=== PATIENT | female | born 1930 | race Caucasian/White ===

== ENCOUNTER 2016-05-22 13:08 | Inpatient (IN) | payer OTHER ==
[~2016-05-22] VITALS: Ht 147.3 cm; Wt 38.2 kg
[~2016-05-22 13:08] MED LIST: ADVAIR 250/501 DISK IH; ADVAIR 500/501 DISK IH; ALBUTEROL2.5 MG/3 M IH; ALPRAZOLAM0.25 M2 PO; ALPRAZOLAM0.25 MG PO; ALPRAZOLAM0.5 MG PO; ARANESP10 MCG/0.4 SC; ARANESP300 MCG/0. IV; ASPIR-LOW81 MG PO; ASPIRIN EC325 MG PO; ASPIRIN81 M1 PO; AZITHROMYCIN250 MG PO; CALCIUM 500 +1 EAC4 PO; CEFTIN250 MG PO; CEFTIN500 MG PO; CHERATUSSIN AC473 ML PO; CIDAFLEX TABLE1 EACH PO; CLONIDINE HCL0.1 MG PO; COZAAR25 MG PO; COZAAR50 MG PO; CRANBERRY 4001 EAC1 PO; CRANBERRY500 M2 PO; CRANBERRY500 MG PO; CYANOCOBALAM1000 MCG PO; DOCUSATE SODIU100 MG PO; DOK PLUS TABLE1 EACH PO; DOXAZOSIN MESYLA1 MG PO; DOXYCYCLINE HY100 MG PO; FERREX 150150 MG PO; FLONASE16 G1 BOTH NARES; FOLIC ACID1 MG PO; FUROSEMIDE20 MG PO; FUROSEMIDE40 MG PO; GABAPENTIN300 M1 PO; GABAPENTIN300 MG PO; GLUCOSAMINE &1 EACH PO; GLUCOSAMINE-CH1 EA14 PO; GLUCOSAMINE-CH1 EA28 PO; HYDROCODON-ACE1 EAC7 PO; I-CAPS AREDS S1 EACH PO; I-CAPS WITH LU1 EACH PO; ICAPS MULTIV1 TABLET PO; IMDUR60 MG PO; IRON55 MG PO; ISOSORBIDE MONO60 MG PO; K-DUR10 MEQ PO; K-TAB10 MEQ PO; LASIX40 MG PO; LEVAQUIN750 MG PO; LEVO-T112 MCG PO; LEVOFLOXACIN750 MG PO; LEVOTHROID88 MCG PO; LEVOTHYROXINE100 MCG PO; LEVOTHYROXINE88 MCG PO; LEVOXYL100 MCG PO; LEVOXYL88 MCG PO; LIPITOR20 MG PO; LIPITOR40 MG PO; LO-DOSE ASPIRIN81 M1 PO; LOPRESSOR25 MG PO; LOSARTAN POTAS100 MG PO; LOSARTAN POTASS50 MG PO; METOPROLOL TART25 MG PO; MICRO-K10 ME2 PO; NAPROSYN500 MG PO; NASONEX17 GM NS; NEXIUM40 MG PO; NIFEREX-150,FE150 MG PO; NITROSTAT0.4 MG SL; OS-CAL 500+D C1 EAC1 PO; OS-CAL 500+D T1 EAC1 PO; OS-CAL 500+D31 EACH PO; OSCAL, OYSTER500 MG PO; OYSTER SHELL C1 EA16 PO; PLAVIX75 MG PO; PREDNISONE20 MG PO; PROAIR HFA8.5 GM IH; PROBIOTIC 4X C1 EACH PO; PROBIOTIC DIGE1 EACH PO; PROBIOTIC1 EAC1 PO; PROVENTIL,2.5 MG/3 M IH; RANITIDINE HCL150 M1 PO; RANITIDINE HCL150 MG PO; ROBITUSSIN100 MG/5 M PO; SENNA PLUS TAB1 EACH PO; SERTRALINE HCL50 MG PO; SINGULAIR10 MG PO; SYNTHROID100 MCG PO; SYNTHROID88 MCG PO; SYSTANE BALANCE10 ML BOTH EYES; SYSTANE GEL EYE10 ML BOTH EYES; TIROSINT13 MCG PO; TOPROL XL50 MG PO; TYLENOL EXTRA500 MG PO; TYLENOL REGULA325 MG PO; VALIUM5 MG PO; VENTOLIN HFA18 GM IH; XANAX0.25 MG PO; XARELTO15 MG PO; ZANTAC150 MG PO; ZITHROMAX250 MG PO; ZOLOFT50 MG PO; ZYRTEC10 M2 PO; ZYRTEC10 M3 PO
[2016-05-22 14:09] LABS: EOSINOPHIL (%) 0.1 % (0-5); HEMATOCRIT 31.1 % (36.0-46.0); IMMATURE GRANULOCYTE (%) 0.5 % (0.0-0.7); IMMATURE GRANULOCYTE COUNT 0.8 K/uL; LYMPHOCYTE COUNT 0.9 K/uL (1.0-2.8); MCH 28.5 PG (29.0-34.0); MCHC 31.5 G/DL (30.0-36.0); MCV 90.4 FL (83-99); MEAN PLAT.VOLUME 11.4 uM^3 (9.5-12.4); MONOCYTE (%) 7.3 % (3-12); MONOCYTE COUNT 1.1 K/uL (0-0.8); NEUTROPHIL (%) 86.4 % (45-76); NEUTROPHIL COUNT 13.2 K/uL (1.8-6.4); PLATELET COUNT 152 K/uL (156-360); RBC DIS.WIDTH-CV 17.3 % (11.8-14.6); RBC DIS.WIDTH-SD 55.2 % (39-53); RED BLOOD COUNT 3.44 M/uL (3.80-5.20); WHITE BLOOD COUNT 15.2 K/uL (4.1-10.2)
[2016-05-22 14:15] LABS: CHLORIDE 103 mEq/L (99-109); POTASSIUM 4.3 mEq/L (3.7-5.4); SODIUM 142 mEq/L (136-147)
[2016-05-22 14:17] LABS: GLUCOSE 152 mg/dL (70-99)
[2016-05-22 14:18] LABS: ANION GAP 12 MEQ/L (2-14)
[2016-05-22 14:19] LABS: TOTAL BILIRUBIN 0.3 mg/dL (0.0-1.0)
[2016-05-22 14:21] LABS: ALKALINE PHOSPHATASE 81 IU/L (3-129); GFR ESTIMATE (CALCULATED) 56 mL/min/
[2016-05-22 14:22] LABS: UREA NITROGEN (BUN) 31 mg/dL (9-23)
[2016-05-22 14:26] LABS: TROP-I INTERPRETATION NEGATIVE; TROPONIN-I 0.09 ng/mL (0.0-0.30)
[2016-05-22 15:07] LABS: BASE EXCESS 3.3 mEq/L (-3 to +3); CARBOXY HGB 1.5 % (0-5); METHEMOGLOBIN 1.3 % (0-1.5); PCO2 49 mm Hg (35-45); PO2 228 mm Hg (80-100); pH 7.38 (7.35-7.45)
[2016-05-22 15:08] LABS: COMMENTS - BLOOD GASES A+C+; CONTINUOUS POS AIRWAY PRESSURE 5 cm H2O; DEVICE VENT VIA MASK; FI02 80 %; MODE SPON; PRES. SUPPORT 10 CM/H2O; SITE RR; TOTAL RESP RATE 20 resp/min
[2016-05-22 23:03] VITALS: BP 86/40
[2016-05-22 23:30] VITALS: BP 90/44
[2016-05-23] VITALS (23 sets, daily range): BP systolic 86–158; BP diastolic 31–68
[2016-05-23 01:14] LABS: METH RESISTANT S AUREUS PCR NEGATIVE (NEGATIVE)
[2016-05-23 01:15] LABS: TROP-I INTERPRETATION NEGATIVE
[2016-05-23 01:20] LABS: PROBE CHECK PASS; SPECIMEN PROCESSING CONTROL PASS
[2016-05-23 06:19] LABS: HEMATOCRIT 29.3 % (36.0-46.0); MCH 28.4 PG (29.0-34.0); MCHC 31.4 G/DL (30.0-36.0); MCV 90.4 FL (83-99); MEAN PLAT.VOLUME 11.8 uM^3 (9.5-12.4); PLATELET COUNT 154 K/uL (156-360); RBC DIS.WIDTH-CV 17.8 % (11.8-14.6); RBC DIS.WIDTH-SD 58.9 % (39-53); RED BLOOD COUNT 3.24 M/uL (3.80-5.20); WHITE BLOOD COUNT 14.9 K/uL (4.1-10.2)
[2016-05-23 06:46] LABS: ANION GAP 10 MEQ/L (2-14); CHLORIDE 101 MEQ/L (99-109); GFR ESTIMATE (CALCULATED) > 59 mL/min/; GLUCOSE 159 mg/dL (70-99); MAGNESIUM 1.8 mg/dl (1.3-2.7); SAMPLE HEMOLYSIS CHECK 0; SAMPLE ICTERIC CHECK 0; SAMPLE LIPEMIA CHECK 0; SODIUM 143 MEQ/L (136-147); UREA NITROGEN (BUN) 30 mg/dL (9-23)
[2016-05-23 07:02] LABS: TROP-I INTERPRETATION NEGATIVE; TROPONIN-I 0.24 ng/mL (0.0-0.30)
[2016-05-23 18:47] LABS: CREATINE KINASE 44 IU/L (1-294); TOTAL CK 44 IU/L (1-294)
[2016-05-23 18:53] LABS: TROP-I INTERPRETATION NEGATIVE; TROPONIN-I 0.15 ng/mL (0.0-0.30)
[2016-05-23 19:25] LABS: CK-MB 2.5 ng/mL (0.0-4.9)
[2016-05-24] VITALS (21 sets, daily range): BP systolic 128–197; BP diastolic 39–100
[2016-05-24 01:45] LABS: CREATINE KINASE 58 IU/L (1-294); TOTAL CK 58 IU/L (1-294)
[2016-05-24 01:46] LABS: TROP-I INTERPRETATION NEGATIVE
[2016-05-24 01:52] LABS: CK-MB 2.8 ng/mL (0.0-4.9)
[2016-05-24 06:59] LABS: TROP-I INTERPRETATION NEGATIVE; TROPONIN-I 0.17 ng/mL (0.0-0.30)
[2016-05-24 07:11] LABS: ANION GAP 13 MEQ/L (2-14); CHLORIDE 100 MEQ/L (99-109); CREATINE KINASE 45 IU/L (1-294); GFR ESTIMATE (CALCULATED) > 59 mL/min/; GLUCOSE 170 mg/dL (70-99); POTASSIUM 3.5 MEQ/L (3.7-5.4); SAMPLE HEMOLYSIS CHECK 0; SAMPLE ICTERIC CHECK 0; SAMPLE LIPEMIA CHECK 0; SODIUM 145 MEQ/L (136-147); TOTAL CK 45 IU/L (1-294); UREA NITROGEN (BUN) 36 mg/dL (9-23)
[2016-05-24 07:12] LABS: MAGNESIUM 2.3 mg/dl (1.3-2.7)
[2016-05-24 07:23] LABS: CK-MB 3.1 ng/mL (0.0-4.9)
[2016-05-24 12:16] LABS: HEMATOCRIT 33.2 % (36.0-46.0); MCH 28.6 PG (29.0-34.0); MCHC 31.6 G/DL (30.0-36.0); MCV 90.5 FL (83-99); RBC DIS.WIDTH-CV 17.6 % (11.8-14.6); RBC DIS.WIDTH-SD 57.9 % (39-53); RED BLOOD COUNT 3.67 M/uL (3.80-5.20); WHITE BLOOD COUNT 15.3 K/uL (4.1-10.2)
[2016-05-24 12:52] LABS: TROP-I INTERPRETATION NEGATIVE; TROPONIN-I 0.16 ng/mL (0.0-0.30)
[2016-05-24 13:09] LABS: ABS NEUTROPHIL COUNT 14.41; EOSINOPHIL ABS CT 0.15; PLAT.SUFFICIENCY ADEQUATE; PLATELET COUNT 191 K/uL (156-360); USER ID BLP
[2016-05-24 13:13] LABS: CREATINE KINASE 43 IU/L (1-294); TOTAL CK 43 IU/L (1-294)
[2016-05-24 14:12] LABS: CK-MB 3.4 ng/mL (0.0-4.9)
[2016-05-25] VITALS (14 sets, daily range): BP systolic 143–182; BP diastolic 60–94
[2016-05-25 05:36] LABS: HEMATOCRIT 33.7 % (36.0-46.0); MCH 28.5 PG (29.0-34.0); MCHC 31.5 G/DL (30.0-36.0); MCV 90.6 FL (83-99); MEAN PLAT.VOLUME 11.7 uM^3 (9.5-12.4); PLATELET COUNT 192 K/uL (156-360); RBC DIS.WIDTH-CV 17.5 % (11.8-14.6); RBC DIS.WIDTH-SD 58.1 % (39-53); RED BLOOD COUNT 3.72 M/uL (3.80-5.20); WHITE BLOOD COUNT 13.3 K/uL (4.1-10.2)
[2016-05-25 06:15] LABS: EOSINOPHIL (%) 0 % (0-5); IMMATURE GRANULOCYTE (%) 0.8 % (0.0-0.7); IMMATURE GRANULOCYTE COUNT 0.1 K/uL; LYMPHOCYTE COUNT 0.5 K/uL (1.0-2.8); MONOCYTE (%) 2.6 % (3-12); MONOCYTE COUNT 0.3 K/uL (0-0.8); NEUTROPHIL (%) 92.7 % (45-76); NEUTROPHIL COUNT 12.3 K/uL (1.8-6.4)
[2016-05-25 06:51] LABS: ANION GAP 12 MEQ/L (2-14); CHLORIDE 99 MEQ/L (99-109); GFR ESTIMATE (CALCULATED) 56 mL/min/; GLUCOSE 178 mg/dL (70-99); MAGNESIUM 2.4 mg/dl (1.3-2.7); POTASSIUM 3.3 MEQ/L (3.7-5.4); SAMPLE HEMOLYSIS CHECK 0; SAMPLE ICTERIC CHECK 0; SAMPLE LIPEMIA CHECK 0; SODIUM 144 MEQ/L (136-147); UREA NITROGEN (BUN) 39 mg/dL (9-23)
[2016-05-26] VITALS (9 sets, daily range): BP systolic 0–186; BP diastolic 0–95
[2016-05-26 06:30] LABS: HEMATOCRIT 37.1 % (36.0-46.0); MCH 28.6 PG (29.0-34.0); MCHC 31.5 G/DL (30.0-36.0); MCV 90.7 FL (83-99); RBC DIS.WIDTH-CV 17.1 % (11.8-14.6); RBC DIS.WIDTH-SD 56.4 % (39-53); RED BLOOD COUNT 4.09 M/uL (3.80-5.20)
[2016-05-26 06:53] LABS: ANION GAP 12 MEQ/L (2-14); CHLORIDE 94 MEQ/L (99-109); EOSINOPHIL (%) 0 % (0-5); GFR ESTIMATE (CALCULATED) 50 mL/min/; GLUCOSE 152 mg/dL (70-99); IMMATURE GRANULOCYTE (%) 1.4 % (0.0-0.7); IMMATURE GRANULOCYTE COUNT 0.2 K/uL; LYMPHOCYTE COUNT 0.7 K/uL (1.0-2.8); MAGNESIUM 2.2 mg/dl (1.3-2.7); MEAN PLAT.VOLUME 12.2 uM^3 (9.5-12.4); MONOCYTE (%) 6.5 % (3-12); MONOCYTE COUNT 0.9 K/uL (0-0.8); NEUTROPHIL (%) 86.8 % (45-76); NEUTROPHIL COUNT 11.3 K/uL (1.8-6.4); POTASSIUM 3.7 MEQ/L (3.7-5.4); SAMPLE HEMOLYSIS CHECK 0; SAMPLE ICTERIC CHECK 0; SAMPLE LIPEMIA CHECK 0; SODIUM 140 MEQ/L (136-147); UREA NITROGEN (BUN) 40 mg/dL (9-23)
[2016-05-26 06:56] LABS: PLATELET COUNT 257 K/uL (156-360)
[2016-05-26 09:48] LABS: C DIFF TOXIN NEGATIVE (NEGATIVE)
[2016-05-26 09:49] LABS: PROBE CHECK PASS; SPECIMEN PROCESSING CONTROL PASS
[2016-05-27] VITALS (7 sets, daily range): BP systolic 126–193; BP diastolic 57–89
[2016-05-27 06:49] LABS: HEMATOCRIT 39.1 % (36.0-46.0); MCH 29.2 PG (29.0-34.0); MCHC 32.7 G/DL (30.0-36.0); MCV 89.1 FL (83-99); PLATELET COUNT 267 K/uL (156-360); RBC DIS.WIDTH-CV 16.9 % (11.8-14.6); RBC DIS.WIDTH-SD 55.3 % (39-53); RED BLOOD COUNT 4.39 M/uL (3.80-5.20); WHITE BLOOD COUNT 12.2 K/uL (4.1-10.2)
[2016-05-27 07:02] LABS: EOSINOPHIL (%) 0 % (0-5); IMMATURE GRANULOCYTE (%) 1.5 % (0.0-0.7); IMMATURE GRANULOCYTE COUNT 0.2 K/uL; LYMPHOCYTE COUNT 0.7 K/uL (1.0-2.8); MONOCYTE (%) 4.1 % (3-12); MONOCYTE COUNT 0.5 K/uL (0-0.8); NEUTROPHIL (%) 88.4 % (45-76); NEUTROPHIL COUNT 10.8 K/uL (1.8-6.4)
[2016-05-27 07:21] LABS: ANION GAP 12 MEQ/L (2-14); CHLORIDE 97 MEQ/L (99-109); GFR ESTIMATE (CALCULATED) 50 mL/min/; GLUCOSE 146 mg/dL (70-99); MAGNESIUM 2.1 mg/dl (1.3-2.7); POTASSIUM 3.7 MEQ/L (3.7-5.4); SAMPLE HEMOLYSIS CHECK 0; SAMPLE ICTERIC CHECK 0; SAMPLE LIPEMIA CHECK 0; SODIUM 140 MEQ/L (136-147); UREA NITROGEN (BUN) 43 mg/dL (9-23)
[2016-05-28 06:33] LABS: MCH 28.1 PG (29.0-34.0); MCV 87.7 FL (83-99); MEAN PLAT.VOLUME 11.8 uM^3 (9.5-12.4); PLATELET COUNT 303 K/uL (156-360); RBC DIS.WIDTH-CV 16.9 % (11.8-14.6); RBC DIS.WIDTH-SD 54.2 % (39-53); RED BLOOD COUNT 4.56 M/uL (3.80-5.20); WHITE BLOOD COUNT 14.4 K/uL (4.1-10.2)
[2016-05-28 07:01] LABS: ANION GAP 13 MEQ/L (2-14); CHLORIDE 97 MEQ/L (99-109); EOSINOPHIL (%) 0 % (0-5); GFR ESTIMATE (CALCULATED) 56 mL/min/; GLUCOSE 147 mg/dL (70-99); IMMATURE GRANULOCYTE (%) 1.4 % (0.0-0.7); IMMATURE GRANULOCYTE COUNT 0.2 K/uL; LYMPHOCYTE COUNT 1.2 K/uL (1.0-2.8); MONOCYTE (%) 2.6 % (3-12); MONOCYTE COUNT 0.4 K/uL (0-0.8); NEUTROPHIL (%) 87.5 % (45-76); NEUTROPHIL COUNT 12.6 K/uL (1.8-6.4); POTASSIUM 3.5 MEQ/L (3.7-5.4); SAMPLE HEMOLYSIS CHECK 0; SAMPLE ICTERIC CHECK 0; SAMPLE LIPEMIA CHECK 0; SODIUM 143 MEQ/L (136-147); UREA NITROGEN (BUN) 48 mg/dL (9-23)
[2016-05-28 09:29] VITALS: BP 183/89
[2016-05-28 17:20] VITALS: BP 161/62
[2016-05-28 23:07] VITALS: BP 126/58
[2016-05-29 06:28] LABS: HEMATOCRIT 40.2 % (36.0-46.0); MCH 27.8 PG (29.0-34.0); MCHC 31.3 G/DL (30.0-36.0); MCV 88.7 FL (83-99); MEAN PLAT.VOLUME 12.1 uM^3 (9.5-12.4); PLATELET COUNT 282 K/uL (156-360); RBC DIS.WIDTH-CV 17.1 % (11.8-14.6); RBC DIS.WIDTH-SD 55.4 % (39-53); RED BLOOD COUNT 4.53 M/uL (3.80-5.20); WHITE BLOOD COUNT 15.4 K/uL (4.1-10.2)
[2016-05-29 06:34] LABS: EOSINOPHIL (%) 0 % (0-5); IMMATURE GRANULOCYTE (%) 0.8 % (0.0-0.7); IMMATURE GRANULOCYTE COUNT 0.1 K/uL; LYMPHOCYTE COUNT 1.3 K/uL (1.0-2.8); MONOCYTE (%) 3.8 % (3-12); MONOCYTE COUNT 0.6 K/uL (0-0.8); NEUTROPHIL COUNT 13.4 K/uL (1.8-6.4)
[2016-05-29 06:54] LABS: ANION GAP 11 MEQ/L (2-14); CHLORIDE 101 MEQ/L (99-109); GFR ESTIMATE (CALCULATED) 56 mL/min/; GLUCOSE 142 mg/dL (70-99); SAMPLE HEMOLYSIS CHECK 0; SAMPLE ICTERIC CHECK 0; SAMPLE LIPEMIA CHECK 0; SODIUM 143 MEQ/L (136-147); UREA NITROGEN (BUN) 52 mg/dL (9-23)
[2016-05-29 07:45] VITALS: BP 178/79
[2016-05-29 15:52] VITALS: BP 166/76
[2016-05-29 19:37] VITALS: BP 170/81
[2016-05-30 00:23] VITALS: BP 160/73
[2016-05-30 06:23] LABS: HEMATOCRIT 39.8 % (36.0-46.0); MCH 28.4 PG (29.0-34.0); MCHC 31.2 G/DL (30.0-36.0); MCV 91.3 FL (83-99); MEAN PLAT.VOLUME 12.2 uM^3 (9.5-12.4); PLATELET COUNT 249 K/uL (156-360); RBC DIS.WIDTH-CV 17.1 % (11.8-14.6); RBC DIS.WIDTH-SD 57.4 % (39-53); RED BLOOD COUNT 4.36 M/uL (3.80-5.20); WHITE BLOOD COUNT 12.6 K/uL (4.1-10.2)
[2016-05-30 06:32] LABS: EOSINOPHIL (%) 0.1 % (0-5); IMMATURE GRANULOCYTE (%) 0.6 % (0.0-0.7); IMMATURE GRANULOCYTE COUNT 0.1 K/uL; LYMPHOCYTE COUNT 0.6 K/uL (1.0-2.8); MONOCYTE (%) 7.9 % (3-12); NEUTROPHIL (%) 86.5 % (45-76); NEUTROPHIL COUNT 10.9 K/uL (1.8-6.4)
[2016-05-30 06:44] LABS: ANION GAP 8 MEQ/L (2-14); CHLORIDE 103 MEQ/L (99-109); GFR ESTIMATE (CALCULATED) > 59 mL/min/; GLUCOSE 115 mg/dL (70-99); MAGNESIUM 1.9 mg/dl (1.3-2.7); POTASSIUM 4.3 MEQ/L (3.7-5.4); SAMPLE HEMOLYSIS CHECK 0; SAMPLE ICTERIC CHECK 0; SAMPLE LIPEMIA CHECK 0; SODIUM 146 MEQ/L (136-147); UREA NITROGEN (BUN) 39 mg/dL (9-23)
[2016-05-30 08:44] VITALS: BP 186/84
[2016-05-30 16:00] VITALS: BP 138/88
[2016-05-31 00:04] VITALS: BP 127/65
[2016-05-31 07:48] VITALS: BP 136/68
[2016-05-31 07:53] LABS: HEMATOCRIT 38.8 % (36.0-46.0); MCH 28.2 PG (29.0-34.0); MCHC 30.9 G/DL (30.0-36.0); MCV 91.1 FL (83-99); MEAN PLAT.VOLUME 12.2 uM^3 (9.5-12.4); PLATELET COUNT 205 K/uL (156-360); RBC DIS.WIDTH-SD 56.2 % (39-53); RED BLOOD COUNT 4.26 M/uL (3.80-5.20); WHITE BLOOD COUNT 11.8 K/uL (4.1-10.2)
[2016-05-31 08:09] LABS: EOSINOPHIL (%) 0.1 % (0-5); IMMATURE GRANULOCYTE (%) 0.7 % (0.0-0.7); IMMATURE GRANULOCYTE COUNT 0.1 K/uL; LYMPHOCYTE COUNT 0.8 K/uL (1.0-2.8); MONOCYTE (%) 8.2 % (3-12); NEUTROPHIL (%) 84.2 % (45-76)
[2016-05-31 08:17] LABS: ANION GAP 8 MEQ/L (2-14); CHLORIDE 103 MEQ/L (99-109); GFR ESTIMATE (CALCULATED) > 59 mL/min/; GLUCOSE 126 mg/dL (70-99); MAGNESIUM 1.7 mg/dl (1.3-2.7); POTASSIUM 4.3 MEQ/L (3.7-5.4); SAMPLE HEMOLYSIS CHECK 0; SAMPLE ICTERIC CHECK 0; SAMPLE LIPEMIA CHECK 0; SODIUM 144 MEQ/L (136-147); UREA NITROGEN (BUN) 33 mg/dL (9-23)
[2016-05-31] MEDS ORDERED: DOXYCYCLINE HY100 M3 PO (11:59)
[2016-05-31] MEDS ORDERED: APRESOLINE10 MG PO (12:01)
[2016-05-31] MEDS ORDERED: MYCOSTATIN 100,60 ML PO (12:22)
[2016-05-31] MEDS ORDERED: PREDNISONE5 MG PO (12:23)
== END 2016-05-31 15:23 | disposition home or self-care (01) | DRG 189 ==
LOC: EME 13:08 → 4EAST 16:47 → 5EAST 16:47 → EDOF 16:47 → 4WEST 16:47 → EDOF 20:54 → 4WEST 23:00 → 4EAST 05-26 08:14 → 5EAST 05-27 20:12
PROVIDERS: Emergency Medicine; Internal Medicine; Internal Medicine Nephrology; Physician Assistant Medical; Specialist
DX: J96.21 Acute and chronic respiratory failure with hypoxia (principal); J18.9 Pneumonia, unspecified organism; J44.1 Chronic obstructive pulmonary disease with (acute) exacerbation; I50.22 Chronic systolic (congestive) heart failure; R64 Cachexia; B37.0 Candidal stomatitis; Z68.1 Body mass index [BMI] 19.9 or less, adult; I25.5 Ischemic cardiomyopathy; I48.2 Chronic atrial fibrillation; I27.2 Other secondary pulmonary hypertension; I12.9 Hypertensive chronic kidney disease with stage 1 through stage 4 chronic kidney disease, or unspecified chronic kidney disease; N18.3 Chronic kidney disease, stage 3 (moderate); E87.6 Hypokalemia; I25.10 Atherosclerotic heart disease of native coronary artery without angina pectoris; E03.9 Hypothyroidism, unspecified; D64.9 Anemia, unspecified; K29.70 Gastritis, unspecified, without bleeding; K22.4 Dyskinesia of esophagus; R13.10 Dysphagia, unspecified; I71.4 Abdominal aortic aneurysm, without rupture; Z99.81 Dependence on supplemental oxygen; Z95.1 Presence of aortocoronary bypass graft; Z90.49 Acquired absence of other specified parts of digestive tract
CPT/HCPCS: 36600; 71010; 74000; 74176; 74220; 74230; 80048; 80053; 82550; 82550 91; 82553; 82803; 83605; 83735; 83880; 84100; 84484; 85025; 85027; 87040; 87493; 87641; 88305; 88312; 88342 TC; 92526 GN; 92610 GN; 92611 GN; 93005; 93306; 94002; 94003; 94640; 94640 76; 94644; 94760; 94799; 97530 GP; 99202; 99281; 99285; B4087; C9113; J0456; J0696; J1100; J1940; J1956; J2920; J2930; J3105; J3475; J3480; J7050; J7512; J7644

== ENCOUNTER 2016-07-07 20:58 | Emergency (ER) | payer OTHER ==
[~2016-07-07] VITALS: Ht 147.3 cm; Wt 41.0 kg
[2016-07-07 22:35] VITALS: BP 187/75
== END 2016-07-07 23:19 | disposition home or self-care (01) ==
LOC: EXP 20:58 → EME 20:58 → EXP 23:19
DX: L76.22 Postprocedural hemorrhage of skin and subcutaneous tissue following other procedure (principal); Z79.01 Long term (current) use of anticoagulants; I10 Essential (primary) hypertension; E78.5 Hyperlipidemia, unspecified; E03.9 Hypothyroidism, unspecified; J45.909 Unspecified asthma, uncomplicated; J44.9 Chronic obstructive pulmonary disease, unspecified; Z95.1 Presence of aortocoronary bypass graft; Z95.5 Presence of coronary angioplasty implant and graft; Z87.891 Personal history of nicotine dependence
CPT/HCPCS: 99281; 99283

== ENCOUNTER → 2016-07-07 | Outpatient (CLI) | payer OTHER ==
[~2016-07-07] MED LIST changes: +APRESOLINE10 MG PO; +DOXYCYCLINE HY100 M3 PO; +MYCOSTATIN 100,60 ML PO; +PREDNISONE5 MG PO
== END | disposition home or self-care (01) ==
LOC: AMB 08:06
PROC: 0HBDXZZ Excision of Right Lower Arm Skin, External Approach (ICD-10-PCS; principal; 2016-07-07)
PROC: 0HB5XZZ Excision of Chest Skin, External Approach (ICD-10-PCS; principal; 2016-07-07)
DX: C44.41 Basal cell carcinoma of skin of scalp and neck (principal); C44.519 Basal cell carcinoma of skin of other part of trunk; C44.612 Basal cell carcinoma of skin of right upper limb, including shoulder
CPT/HCPCS: 88305

== ENCOUNTER → 2016-11-05 | Outpatient (CLI) | payer OTHER ==
[~2016-11-05] MED LIST changes: +EXTRA STRENGTH500 M1 PO; +HYDRALAZINE HCL10 MG PO; +POTASSIUM CHLO10 ME3 PO; +SENNA8.6 MG PO
[2016-11-05 08:20] LABS: EOSINOPHIL (%) 2.4 % (0-5); EOSINOPHIL COUNT 0.2 K/uL (0-0.3); HEMATOCRIT 25.4 % (36.0-46.0); IMMATURE GRANULOCYTE (%) 0.5 % (0.0-0.7); INSTRUMENT ABS NEUTROPHIL CT 5.9 K/uL; LYMPHOCYTE COUNT 0.7 K/uL (1.0-2.8); MCH 25.2 PG (29.0-34.0); MCHC 29.5 G/DL (30.0-36.0); MCV 85.2 FL (83-99); MEAN PLAT.VOLUME 11.4 uM^3 (9.5-12.4); MONOCYTE (%) 12.6 % (3-12); NEUTROPHIL (%) 75.3 % (45-76); NEUTROPHIL COUNT 5.9 K/uL (1.8-6.4); PLATELET COUNT 184 K/uL (156-360); RBC DIS.WIDTH-CV 15.1 % (11.8-14.6); RBC DIS.WIDTH-SD 46.6 % (39-53); RED BLOOD COUNT 2.98 M/uL (3.80-5.20); WHITE BLOOD COUNT 7.8 K/uL (4.1-10.2)
[2016-11-05 08:26] LABS: PROTHROMBIN TIME 10.4 (9.2-11.2); PTT 24.7 (25-32)
[2016-11-05 11:08] LABS: ABS NEUTROPHIL COUNT 5.9; ANISOCYTOSIS 1+; ATYPICAL LYMPHOCYTE 0.9 %; BASOPHILS 2.6 %; EOSINOPHIL ABS CT 0.3; EOSINOPHILS 3.4 % (0-5.0); GIANT PLATELETS 1+; HYPOCHROMASIA 1+; LYMPHOCYTES 12.1 % (15.0-45.0); PLAT.SUFFICIENCY ADEQUATE; POIKILOCYTOSIS 1+; SPHEROCYTES 1+; TARGET CELLS 1+
[2016-11-07 17:12] LABS: Flow Clinical Information NOT PROVIDED (()); Flow Number of Markers 24 (()); Flow Spec Viability 57 % (()); Flow Specimen Type BONE MARROW (())
== END | disposition home or self-care (01) ==
LOC: OPR 11-04 10:00 → EDSTATUS 09:00 → OPR 09:00
PROVIDERS: Internal Medicine Medical Oncology
DX: I13.0 Hypertensive heart and chronic kidney disease with heart failure and stage 1 through stage 4 chronic kidney disease, or unspecified chronic kidney disease (principal); N18.3 Chronic kidney disease, stage 3 (moderate); I50.9 Heart failure, unspecified; D63.1 Anemia in chronic kidney disease; I48.91 Unspecified atrial fibrillation; Z79.01 Long term (current) use of anticoagulants; I71.4 Abdominal aortic aneurysm, without rupture; J44.9 Chronic obstructive pulmonary disease, unspecified; K21.9 Gastro-esophageal reflux disease without esophagitis; E78.00 Pure hypercholesterolemia, unspecified; E03.9 Hypothyroidism, unspecified; R73.09 Other abnormal glucose; Z88.0 Allergy status to penicillin
CPT/HCPCS: 38221; G0364; 77012; 85007; 85025; 85610; 85730; 85999; 88184 90; 88185 90; 88189 90; 88271 90; 88275 90; 88291 90; J3010

== ENCOUNTER 2016-11-13 18:39 | Inpatient (IN) | payer OTHER ==
[2016-11-13] VITALS (7 sets, daily range): BP systolic 144–179; BP diastolic 50–85
[~2016-11-13] VITALS: Ht 147.3 cm; Wt 43.7 kg
[2016-11-13 19:05] LABS: EOSINOPHIL COUNT 0.1 K/uL (0-0.3); IMMATURE GRANULOCYTE (%) 0.3 % (0.0-0.7); INSTRUMENT ABS NEUTROPHIL CT 9.4 K/uL; LYMPHOCYTE COUNT 1.4 K/uL (1.0-2.8); MCH 24.5 PG (29.0-34.0); MCHC 29.3 G/DL (30.0-36.0); MCV 83.6 FL (83-99); MEAN PLAT.VOLUME 11.8 uM^3 (9.5-12.4); MONOCYTE (%) 11.6 % (3-12); MONOCYTE COUNT 1.4 K/uL (0-0.8); NEUTROPHIL (%) 75.7 % (45-76); NEUTROPHIL COUNT 9.4 K/uL (1.8-6.4); RBC DIS.WIDTH-CV 15.5 % (11.8-14.6); RBC DIS.WIDTH-SD 47.3 % (39-53); RED BLOOD COUNT 3.35 M/uL (3.80-5.20); WHITE BLOOD COUNT 12.5 K/uL (4.1-10.2)
[2016-11-13 19:06] LABS: PLATELET COUNT 270 K/uL (156-360)
[2016-11-13 19:13] LABS: CHLORIDE 103 mEq/L (99-109); POTASSIUM 4.8 mEq/L (3.7-5.4); SODIUM 143 mEq/L (136-147)
[2016-11-13 19:14] LABS: AMYLASE 138 IU/L (1-118)
[2016-11-13 19:15] LABS: GLUCOSE 144 mg/dL (70-99)
[2016-11-13 19:16] LABS: ANION GAP 12 MEQ/L (2-14)
[2016-11-13 19:17] LABS: TOTAL BILIRUBIN 0.2 mg/dL (0.0-1.0)
[2016-11-13 19:18] LABS: ALKALINE PHOSPHATASE 114 IU/L (3-129); INTER. NORMALIZED RATIO 1.2; PROTHROMBIN TIME 12.5 (9.2-11.2); SERUM ETHYL ALCOHOL < 10 mg/dL
[2016-11-13 19:19] LABS: GFR ESTIMATE (CALCULATED) 50 mL/min/
[2016-11-13 19:20] LABS: UREA NITROGEN (BUN) 30 mg/dL (9-23)
[2016-11-13 19:22] LABS: LIPASE 44 U/L (1.0-51.0)
[2016-11-13 19:24] LABS: TROP-I INTERPRETATION NEGATIVE; TROPONIN-I 0.04 ng/mL (0.0-0.30)
[2016-11-13 20:05] LABS: BASE EXCESS 6.9 mEq/L (-3 to +3); BICARBONATE 34.6 mEq/L (22-26); CARBOXY HGB 1.3 % (0-5); METHEMOGLOBIN 0.9 % (0-1.5)
[2016-11-13 20:06] LABS: COMMENTS - BLOOD GASES A+C+; PCO2 72 mm Hg (35-45); PO2 33 mm Hg (80-100); SITE RR; pH 7.29 (7.35-7.45)
[2016-11-13 20:07] LABS: DEVICE 980; FI02 100 %; MODE SPONT; PEEP 5 CM/H20; PRES. SUPPORT 10 CM/H2O; TOTAL RESP RATE 21 resp/min
[2016-11-13 20:26] LABS: ADD MIUA? NO; BILIRUBIN NEGATIVE; BLOOD NEGATIVE; COLOR STRAW ((YELLOW)); GLUCOSE (STRIP) NEGATIVE; KETONES NEGATIVE; LEUKOCYTES NEGATIVE; NITRITE NEGATIVE; PROTEIN (STRIP) NEGATIVE; SPECIFIC GRAVITY 1.006 (1.000-1.030); UCUL ADDED? NO; UROBILINOGEN 0.2 MG/DL (0.2-1.0)
[2016-11-13 20:34] LABS: AMPHETAMINE NEGATIVE (500 ng/mL); BARBITURATES NEGATIVE (200 ng/mL); BENZODIAZEPINES NEGATIVE (150 ng/mL); COCAINE NEGATIVE (150 ng/mL); INTERNAL CONTROLS VALID? YES; METHADONE NEGATIVE (200 ng/mL); METHAMPHETAMINE NEGATIVE (500 ng/mL); OPIATES (MORPHINE) NEGATIVE (100 ng/mL); OXYCODONE NEGATIVE (100 ng/mL); PHENCYCLIDINE NEGATIVE (25 ng/mL); PROPOXYPHENE NEGATIVE (300 ng/mL); THC CANNABINOIDS NEGATIVE (50 ng/mL); TRICYCLIC ANTIDEPRESSANTS NEGATIVE (300 ng/mL)
[2016-11-13 22:09] LABS: METH RESISTANT S AUREUS PCR NEGATIVE (NEGATIVE)
[2016-11-13 22:24] LABS: PROBE CHECK PASS; SPECIMEN PROCESSING CONTROL PASS
[2016-11-14] VITALS (33 sets, daily range): BP systolic 0–176; BP diastolic 0–72
[2016-11-14 02:12] LABS: TROP-I INTERPRETATION NEGATIVE; TROPONIN-I 0.08 ng/mL (0.0-0.30)
[2016-11-14 07:47] LABS: MCH 25.1 PG (29.0-34.0); MCHC 30.5 G/DL (30.0-36.0); MCV 82.4 FL (83-99); RBC DIS.WIDTH-CV 15.7 % (11.8-14.6); WHITE BLOOD COUNT 6.8 K/uL (4.1-10.2)
[2016-11-14 07:48] LABS: RED BLOOD COUNT 2.55 M/uL (3.80-5.20)
[2016-11-14 07:50] LABS: INTER. NORMALIZED RATIO 1.1; PROTHROMBIN TIME 11.3 (9.2-11.2)
[2016-11-14 07:59] LABS: ALKALINE PHOSPHATASE 82 IU/L (3-129); AMYLASE 66 IU/L (1-118); ANION GAP 8 MEQ/L (2-14); CHLORIDE 102 MEQ/L (99-109); GFR ESTIMATE (CALCULATED) > 59 mL/min/; GLUCOSE 115 mg/dL (70-99); POTASSIUM 4.6 MEQ/L (3.7-5.4); SAMPLE HEMOLYSIS CHECK 0; SAMPLE ICTERIC CHECK 0; SAMPLE LIPEMIA CHECK 0; SODIUM 143 MEQ/L (136-147); TOTAL BILIRUBIN 0.3 MG/DL (0.0-1.0); UREA NITROGEN (BUN) 28 mg/dL (9-23)
[2016-11-14 08:06] LABS: MEAN PLAT.VOLUME 11.7 uM^3 (9.5-12.4); PLAT.SUFFICIENCY ADEQUATE
[2016-11-14 08:09] LABS: TROP-I INTERPRETATION NEGATIVE; TROPONIN-I 0.09 ng/mL (0.0-0.30)
[2016-11-14 08:10] LABS: PLATELET COUNT 180 K/uL (156-360)
[2016-11-14 10:41] LABS: HEMATOCRIT 20.8 % (36.0-46.0); MCV 83.2 FL (83-99)
[2016-11-14 12:44] LABS: POINT-OF-CARE METER ID UU13113803; POINT-OF-CARE USER ID 612031313
[2016-11-14 17:44] LABS: POINT-OF-CARE METER ID UU13113803; POINT-OF-CARE USER ID 612031313
[2016-11-14 19:57] LABS: HEMATOCRIT 31.9 % (36.0-46.0); MCV 81.8 FL (83-99)
[2016-11-14 21:56] LABS: POINT-OF-CARE METER ID UU13113803
[2016-11-15] VITALS (15 sets, daily range): BP systolic 93–189; BP diastolic 44–80
[2016-11-15 06:12] LABS: HEMATOCRIT 29.9 % (36.0-46.0); MCH 25.7 PG (29.0-34.0); MCHC 31.8 G/DL (30.0-36.0); MCV 80.8 FL (83-99); MEAN PLAT.VOLUME 11.6 uM^3 (9.5-12.4); PLATELET COUNT 194 K/uL (156-360); RBC DIS.WIDTH-CV 16.1 % (11.8-14.6); RBC DIS.WIDTH-SD 47.4 % (39-53); WHITE BLOOD COUNT 9.5 K/uL (4.1-10.2)
[2016-11-15 07:39] LABS: CHLORIDE 99 mEq/L (99-109); SODIUM 141 mEq/L (136-147)
[2016-11-15 07:40] LABS: GLUCOSE 101 mg/dL (70-99)
[2016-11-15 07:42] LABS: ANION GAP 10 MEQ/L (2-14); POTASSIUM 3.3 mEq/L (3.7-5.4)
[2016-11-15 07:44] LABS: GFR ESTIMATE (CALCULATED) > 59 mL/min/
[2016-11-15 07:45] LABS: UREA NITROGEN (BUN) 28 mg/dL (9-23)
[2016-11-15 12:29] LABS: POINT-OF-CARE METER ID UU13113731
[2016-11-15 15:56] LABS: POINT-OF-CARE METER ID UU13113731
[2016-11-16] VITALS (8 sets, daily range): BP systolic 98–163; BP diastolic 49–82
[2016-11-16 07:44] LABS: HEMATOCRIT 32.7 % (36.0-46.0); MCH 25.3 PG (29.0-34.0); MCHC 30.9 G/DL (30.0-36.0); MCV 81.8 FL (83-99); MEAN PLAT.VOLUME 11.6 uM^3 (9.5-12.4); PLATELET COUNT 197 K/uL (156-360); RBC DIS.WIDTH-CV 16.1 % (11.8-14.6); RBC DIS.WIDTH-SD 47.8 % (39-53); WHITE BLOOD COUNT 8.1 K/uL (4.1-10.2)
[2016-11-16 08:13] LABS: ANION GAP 8 MEQ/L (2-14); CHLORIDE 98 MEQ/L (99-109); GFR ESTIMATE (CALCULATED) > 59 mL/min/; GLUCOSE 108 mg/dL (70-99); POTASSIUM 3.6 MEQ/L (3.7-5.4); SAMPLE HEMOLYSIS CHECK 0; SAMPLE ICTERIC CHECK 0; SAMPLE LIPEMIA CHECK 0; SODIUM 142 MEQ/L (136-147); UREA NITROGEN (BUN) 22 mg/dL (9-23)
[2016-11-17 03:45] VITALS: BP 158/78
[2016-11-17 05:58] LABS: HEMATOCRIT 33.9 % (36.0-46.0); MCH 25.5 PG (29.0-34.0); MCHC 31.3 G/DL (30.0-36.0); MCV 81.7 FL (83-99); MEAN PLAT.VOLUME 11.4 uM^3 (9.5-12.4); PLATELET COUNT 209 K/uL (156-360); RBC DIS.WIDTH-CV 16.3 % (11.8-14.6); RED BLOOD COUNT 4.15 M/uL (3.80-5.20); WHITE BLOOD COUNT 8.6 K/uL (4.1-10.2)
[2016-11-17 06:21] LABS: ANION GAP 9 MEQ/L (2-14); CHLORIDE 95 MEQ/L (99-109); GFR ESTIMATE (CALCULATED) 56 mL/min/; GLUCOSE 107 mg/dL (70-99); POTASSIUM 3.5 MEQ/L (3.7-5.4); SAMPLE HEMOLYSIS CHECK 0; SAMPLE ICTERIC CHECK 0; SAMPLE LIPEMIA CHECK 0; SODIUM 140 MEQ/L (136-147); UREA NITROGEN (BUN) 22 mg/dL (9-23)
[2016-11-17 07:08] VITALS: BP 133/62
== END 2016-11-17 12:50 | disposition home health service (06) | DRG 189 ==
LOC: EME 18:39 → SDC 18:46 → 2SOUTH 20:19 → 4WEST 20:19 → 5EAST 11-16 14:56
PROVIDERS: Emergency Medicine; Hospitalist; Internal Medicine Pulmonary Disease; Obstetrics & Gynecology
PROC: 5A09358 Assistance with Respiratory Ventilation, Less than 24 Consecutive Hours, Intermittent Positive Airway Pressure (ICD-10-PCS; principal; 2016-11-13)
PROC: 30233N1 Transfusion of Nonautologous Red Blood Cells into Peripheral Vein, Percutaneous Approach (ICD-10-PCS; 2016-11-14)
DX: J96.21 Acute and chronic respiratory failure with hypoxia (principal); I13.0 Hypertensive heart and chronic kidney disease with heart failure and stage 1 through stage 4 chronic kidney disease, or unspecified chronic kidney disease; I50.23 Acute on chronic systolic (congestive) heart failure; D62 Acute posthemorrhagic anemia; I24.9 Acute ischemic heart disease, unspecified; Z99.81 Dependence on supplemental oxygen; I48.0 Paroxysmal atrial fibrillation; J44.9 Chronic obstructive pulmonary disease, unspecified; D63.8 Anemia in other chronic diseases classified elsewhere; N18.3 Chronic kidney disease, stage 3 (moderate); I16.1 Hypertensive emergency; E87.6 Hypokalemia; I25.10 Atherosclerotic heart disease of native coronary artery without angina pectoris; E78.5 Hyperlipidemia, unspecified; I73.9 Peripheral vascular disease, unspecified; I70.1 Atherosclerosis of renal artery; I27.2 Other secondary pulmonary hypertension; I08.3 Combined rheumatic disorders of mitral, aortic and tricuspid valves; I25.5 Ischemic cardiomyopathy; F41.9 Anxiety disorder, unspecified; E03.9 Hypothyroidism, unspecified; Z66 Do not resuscitate; I25.2 Old myocardial infarction; Z86.79 Personal history of other diseases of the circulatory system; Z88.0 Allergy status to penicillin; Z95.1 Presence of aortocoronary bypass graft; Z95.5 Presence of coronary angioplasty implant and graft; Z95.820 Peripheral vascular angioplasty status with implants and grafts; Z87.891 Personal history of nicotine dependence; Z79.01 Long term (current) use of anticoagulants
CPT/HCPCS: 36600; 71010; 80048; 80053; 81003; 82150; 82803; 82948; 83690; 83880; 84484; 85014; 85018; 85025; 85027; 85610; 85730; 86900; 86901; 86920; 87070; 87205; 87641; 93005; 93306; 94002; 94640; 94640 76; 94760; 94799; 99202; 99281; 99285; G0480; J0456; J0696; J1815; J1940; J2930; J3480; J7040; J7050; J7644; P9016

== ENCOUNTER → 2016-12-19 | Outpatient (CLI) | payer OTHER ==
[~2016-12-19] VITALS: Ht 147.3 cm; Wt 94.2 kg
== END | disposition home or self-care (01) ==
LOC: AMB 14:29
DX: D64.9 Anemia, unspecified (principal); D12.3 Benign neoplasm of transverse colon; D12.0 Benign neoplasm of cecum; K63.5 Polyp of colon; K44.9 Diaphragmatic hernia without obstruction or gangrene; K57.30 Diverticulosis of large intestine without perforation or abscess without bleeding; I48.0 Paroxysmal atrial fibrillation; Z79.01 Long term (current) use of anticoagulants; I25.2 Old myocardial infarction; I10 Essential (primary) hypertension; I35.0 Nonrheumatic aortic (valve) stenosis; I25.10 Atherosclerotic heart disease of native coronary artery without angina pectoris; E78.2 Mixed hyperlipidemia; Z95.1 Presence of aortocoronary bypass graft; I73.9 Peripheral vascular disease, unspecified; I65.29 Occlusion and stenosis of unspecified carotid artery; J44.9 Chronic obstructive pulmonary disease, unspecified; I42.0 Dilated cardiomyopathy; Z87.891 Personal history of nicotine dependence
CPT/HCPCS: 88305

== ENCOUNTER 2017-06-06 08:30 | Observation (INO) | payer OTHER ==
[~2017-06-06] VITALS: Ht 147.3 cm; Wt 43.4 kg
[2017-06-06 08:56] LABS: HEMATOCRIT 31.8 % (36.0-46.0); HEMOGLOBIN 10.3 G/DL (11.9-15.5); MCH 31.2 PG (29.0-34.0); MCHC 32.4 G/DL (30.0-36.0); MCV 96.4 FL (83-99); PLATELET COUNT 144 K/uL (156-360); RBC DIS.WIDTH-CV 13.5 % (11.8-14.6); RBC DIS.WIDTH-SD 48.1 % (39-53); WHITE BLOOD COUNT 6.8 K/uL (4.1-10.2)
[2017-06-06 09:05] LABS: CHLORIDE 105 mEq/L (99-109); POTASSIUM 4.5 mEq/L (3.7-5.4); SODIUM 142 mEq/L (136-147)
[2017-06-06 09:06] LABS: GLUCOSE 98 mg/dL (70-99)
[2017-06-06 09:10] LABS: CREATININE 0.7 mg/dL (0.6-1.3); GFR ESTIMATE (CALCULATED) > 59 mL/min/
[2017-06-06 09:11] LABS: UREA NITROGEN (BUN) 25 mg/dL (9-23)
[2017-06-06 09:18] LABS: TROP-I INTERPRETATION NEGATIVE; TROPONIN-I 0.03 ng/mL (0.0-0.30)
[2017-06-06] MEDS ORDERED: METOPROLOL SUCC50 MG PO (10:48)
[2017-06-06] MEDS ORDERED: OMEPRAZOLE20 MG PO (10:52)
[2017-06-06 12:07] LABS: TROP-I INTERPRETATION NEGATIVE; TROPONIN-I 0.04 ng/mL (0.0-0.30)
[2017-06-06 13:55] VITALS: BP 193/81
[2017-06-06 14:00] VITALS: BP 182/87
[2017-06-06 14:05] VITALS: BP 199/91
[2017-06-06 15:38] VITALS: BP 187/77
[2017-06-06 20:35] VITALS: BP 132/42
[2017-06-07 00:48] VITALS: BP 160/70
[2017-06-07 04:31] VITALS: BP 164/70
[2017-06-07 06:25] LABS: ALBUMIN 3.6 G/DL (3.2-4.8); ALKALINE PHOSPHATASE 81 IU/L (3-129); ALT (GPT) 21 IU/L (3-49); AST (GOT) 24 IU/L (2-34); CHLORIDE 105 MEQ/L (99-109); CREATININE 0.7 MG/DL (0.6-1.3); GFR ESTIMATE (CALCULATED) > 59 mL/min/; GLUCOSE 105 mg/dL (70-99); HDL CHOLESTEROL 61 MG/DL (Desirable>=50); LDL CHOLESTEROL 63 mg/dL (Desirable<100); NON-HDL CHOLESTEROL 76 mg/dL (Desirable<160); POTASSIUM 4.1 MEQ/L (3.7-5.4); SODIUM 142 MEQ/L (136-147); TOTAL BILIRUBIN 0.5 MG/DL (0.0-1.0); TOTAL CHOLESTEROL 137 mg/dL (Desirable<200); TRIGLYCERIDES 67 MG/DL (Normal: <150); UREA NITROGEN (BUN) 19 mg/dL (9-23)
[2017-06-07 07:17] VITALS: BP 145/95
[2017-06-07 11:59] VITALS: BP 126/60
[2017-06-07 16:04] VITALS: BP 128/59
[2017-06-07 16:09] VITALS: BP 151/103
[2017-06-07] MEDS ORDERED: ANTIVERT12.5 MG PO (16:13)
[2017-06-08 07:54] LABS: HEMOGLOBIN A1c (GLYCOHEMOGLOB) 5.9 % HGB (Below 5.7)
== END 2017-06-07 18:33 | disposition home or self-care (01) ==
LOC: EME 08:30 → EDOF 11:15 → ENRESERV 11:21 → EDOF 11:22 → ENRESERV 12:09 → 5WEST 13:55
PROVIDERS: Hospitalist; Nurse Practitioner Family
DX: R42 Dizziness and giddiness (principal); D64.9 Anemia, unspecified; I10 Essential (primary) hypertension; I48.0 Paroxysmal atrial fibrillation; J44.9 Chronic obstructive pulmonary disease, unspecified; Z99.81 Dependence on supplemental oxygen; R09.02 Hypoxemia; I25.10 Atherosclerotic heart disease of native coronary artery without angina pectoris; Z95.1 Presence of aortocoronary bypass graft; I12.9 Hypertensive chronic kidney disease with stage 1 through stage 4 chronic kidney disease, or unspecified chronic kidney disease; N18.3 Chronic kidney disease, stage 3 (moderate); F41.1 Generalized anxiety disorder; R26.89 Other abnormalities of gait and mobility; H91.90 Unspecified hearing loss, unspecified ear; Z87.891 Personal history of nicotine dependence; Z88.0 Allergy status to penicillin; Z88.1 Allergy status to other antibiotic agents; Z88.8 Allergy status to other drugs, medicaments and biological substances; Z88.5 Allergy status to narcotic agent
CPT/HCPCS: 70450; 71046; 80048; 80053; 80061; 83036; 84484; 85027; 87502; 93005; 94640; 94640 76; 94799; 99202; 99281; 99285; G0378; G8978 GP CJ; G8979 GP CI; G8980 CJ; J2060; J7030

== ENCOUNTER 2017-07-09 11:47 | Inpatient (IN) | payer OTHER ==
[~2017-07-09] VITALS: Ht 147.3 cm; Wt 44.0 kg
[~2017-07-09 11:47] MED LIST changes: +ANTIVERT12.5 MG PO; +METOPROLOL SUCC50 MG PO; +OMEPRAZOLE20 MG PO
[2017-07-09 12:25] LABS: BASOPHIL (%) 0.2 % (0-1); EOSINOPHIL (%) 0 % (0-5); HEMATOCRIT 33.8 % (36.0-46.0); HEMOGLOBIN 11.1 G/DL (11.9-15.5); IMMATURE GRANULOCYTE (%) 0.9 % (0.0-0.7); LYMPHOCYTE (%) 3.1 % (15-42); LYMPHOCYTE COUNT 0.5 K/uL (1.0-2.8); MCH 31.6 PG (29.0-34.0); MCHC 32.8 G/DL (30.0-36.0); MCV 96.3 FL (83-99); MONOCYTE (%) 10.1 % (3-12); MONOCYTE COUNT 1.6 K/uL (0-0.8); NEUTROPHIL (%) 85.7 % (45-76); NEUTROPHIL COUNT 13.7 K/uL (1.8-6.4); PLATELET COUNT 138 K/uL (156-360); RBC DIS.WIDTH-CV 13.5 % (11.8-14.6); RBC DIS.WIDTH-SD 48.1 % (39-53); RED BLOOD COUNT 3.51 M/uL (3.80-5.20)
[2017-07-09 12:33] LABS: INTER. NORMALIZED RATIO 1.2
[2017-07-09 12:39] LABS: CHLORIDE 101 mEq/L (99-109); POTASSIUM 4.1 mEq/L (3.7-5.4); SODIUM 140 mEq/L (136-147)
[2017-07-09 12:40] LABS: GLUCOSE 115 mg/dL (70-99)
[2017-07-09 12:44] LABS: CREATININE 0.8 mg/dL (0.6-1.3); GFR ESTIMATE (CALCULATED) > 59 mL/min/
[2017-07-09 12:45] LABS: UREA NITROGEN (BUN) 22 mg/dL (9-23)
[2017-07-09 12:46] LABS: TROP-I INTERPRETATION NEGATIVE
[2017-07-09 19:44] LABS: TROP-I INTERPRETATION NEGATIVE; TROPONIN-I 0.16 ng/mL (0.0-0.30)
[2017-07-09 20:45] VITALS: BP 157/64
[2017-07-10] VITALS (7 sets, daily range): BP systolic 109–148; BP diastolic 54–66
[2017-07-10 01:18] LABS: TROP-I INTERPRETATION NEGATIVE; TROPONIN-I 0.15 ng/mL (0.0-0.30)
[2017-07-10 07:08] LABS: HEMATOCRIT 32.2 % (36.0-46.0); HEMOGLOBIN 10.3 G/DL (11.9-15.5); MCH 30.6 PG (29.0-34.0); MCV 95.5 FL (83-99); PLATELET COUNT 162 K/uL (156-360); RBC DIS.WIDTH-CV 13.4 % (11.8-14.6); RBC DIS.WIDTH-SD 47.8 % (39-53); RED BLOOD COUNT 3.37 M/uL (3.80-5.20); WHITE BLOOD COUNT 16.4 K/uL (4.1-10.2)
[2017-07-10 07:34] LABS: CHLORIDE 101 MEQ/L (99-109); CREATININE 0.8 MG/DL (0.6-1.3); GFR ESTIMATE (CALCULATED) > 59 mL/min/; GLUCOSE 127 mg/dL (70-99); SODIUM 140 MEQ/L (136-147); UREA NITROGEN (BUN) 26 mg/dL (9-23)
[2017-07-10 17:26] LABS: C DIFF TOXIN NEGATIVE (NEGATIVE)
[2017-07-11 04:00] VITALS: BP 135/64
[2017-07-11 06:33] LABS: BASOPHIL (%) 0.3 % (0-1); EOSINOPHIL (%) 2.3 % (0-5); EOSINOPHIL COUNT 0.3 K/uL (0-0.3); HEMATOCRIT 32.7 % (36.0-46.0); HEMOGLOBIN 10.5 G/DL (11.9-15.5); IMMATURE GRANULOCYTE (%) 0.4 % (0.0-0.7); LYMPHOCYTE (%) 4.5 % (15-42); LYMPHOCYTE COUNT 0.7 K/uL (1.0-2.8); MCH 31.3 PG (29.0-34.0); MCHC 32.1 G/DL (30.0-36.0); MCV 97.3 FL (83-99); MONOCYTE (%) 11.3 % (3-12); MONOCYTE COUNT 1.6 K/uL (0-0.8); NEUTROPHIL (%) 81.2 % (45-76); NEUTROPHIL COUNT 11.8 K/uL (1.8-6.4); PLATELET COUNT 163 K/uL (156-360); RBC DIS.WIDTH-CV 13.5 % (11.8-14.6); RBC DIS.WIDTH-SD 48.6 % (39-53); RED BLOOD COUNT 3.36 M/uL (3.80-5.20); WHITE BLOOD COUNT 14.5 K/uL (4.1-10.2)
[2017-07-11 07:12] LABS: CHLORIDE 100 MEQ/L (99-109); GFR ESTIMATE (CALCULATED) 56 mL/min/; GLUCOSE 110 mg/dL (70-99); POTASSIUM 3.7 MEQ/L (3.7-5.4); SODIUM 141 MEQ/L (136-147); UREA NITROGEN (BUN) 32 mg/dL (9-23)
[2017-07-11 08:14] VITALS: BP 145/65
[2017-07-11 13:10] VITALS: BP 147/72
[2017-07-11 16:39] VITALS: BP 143/54
[2017-07-11 20:11] VITALS: BP 134/55
[2017-07-12 00:02] VITALS: BP 108/53
[2017-07-12 03:47] VITALS: BP 104/53
[2017-07-12 08:15] VITALS: BP 105/51
[2017-07-12 08:44] LABS: HEMATOCRIT 32.5 % (36.0-46.0); HEMOGLOBIN 10.3 G/DL (11.9-15.5); MCH 30.5 PG (29.0-34.0); MCHC 31.7 G/DL (30.0-36.0); MCV 96.2 FL (83-99); PLATELET COUNT 164 K/uL (156-360); RBC DIS.WIDTH-CV 13.3 % (11.8-14.6); RBC DIS.WIDTH-SD 47.4 % (39-53); RED BLOOD COUNT 3.38 M/uL (3.80-5.20); WHITE BLOOD COUNT 9.8 K/uL (4.1-10.2)
[2017-07-12] MEDS ORDERED: CEFDINIR300 MG PO (11:12)
[2017-07-12] MEDS ORDERED: FLORASTOR250 MG PO (11:12)
== END 2017-07-12 13:56 | disposition home health service (06) | DRG 189 ==
LOC: EME 11:47 → EDOF 13:31 → 5SOUTH 13:31 → EDOF 13:31 → ENRESERV 13:40 → 5SOUTH 19:00 → ENPENDDIS 07-12 11:55 → 5SOUTH 07-12 13:56
PROVIDERS: Emergency Medicine; Internal Medicine; Physician Assistant; Physician Assistant Medical
DX: J96.21 Acute and chronic respiratory failure with hypoxia (principal); J18.9 Pneumonia, unspecified organism; J44.0 Chronic obstructive pulmonary disease with (acute) lower respiratory infection; I11.0 Hypertensive heart disease with heart failure; I50.23 Acute on chronic systolic (congestive) heart failure; J44.1 Chronic obstructive pulmonary disease with (acute) exacerbation; I48.0 Paroxysmal atrial fibrillation; I25.5 Ischemic cardiomyopathy; L97.919 Non-pressure chronic ulcer of unspecified part of right lower leg with unspecified severity; I27.20 Pulmonary hypertension, unspecified; I08.1 Rheumatic disorders of both mitral and tricuspid valves; I70.1 Atherosclerosis of renal artery; D63.8 Anemia in other chronic diseases classified elsewhere; G62.9 Polyneuropathy, unspecified; I25.10 Atherosclerotic heart disease of native coronary artery without angina pectoris; E78.5 Hyperlipidemia, unspecified; K21.9 Gastro-esophageal reflux disease without esophagitis; E03.9 Hypothyroidism, unspecified; I73.9 Peripheral vascular disease, unspecified; M81.0 Age-related osteoporosis without current pathological fracture; Z66 Do not resuscitate; Z99.81 Dependence on supplemental oxygen; I25.2 Old myocardial infarction; Z95.1 Presence of aortocoronary bypass graft; Z95.5 Presence of coronary angioplasty implant and graft; Z79.01 Long term (current) use of anticoagulants; Z87.891 Personal history of nicotine dependence
CPT/HCPCS: 71045; 71046; 80048; 83735; 83880; 84484; 85025; 85027; 85610; 85730; 87040; 87070; 87205; 87493; 87502; 93005; 93306; 94640; 94640 76; 94799; 99202; 99281; 99285; J0456; J0696; J1100; J1940; J7644